=== PATIENT | female | born 1995 | race Caucasian/White ===

== ENCOUNTER 2019-09-30 19:56 | Emergency (ER) | payer OTHER ==
[~2019-09-30] VITALS: Ht 165.1 cm; Wt 95.2 kg
[~2019-09-30 19:56] MED LIST: NO MEDICATIONS; Naprosyn500 MG PO
[2019-09-30] MEDS ORDERED: TUSSIN CF COUG118 ML PO (20:34)
[2019-09-30] MEDS ORDERED: TUSSIN DM SYRU118 ML PO (20:50)
== END 2019-09-30 20:49 | disposition home or self-care (01) ==
LOC: ER 19:56
DX: J20.8 Acute bronchitis due to other specified organisms (principal); F17.200 Nicotine dependence, unspecified, uncomplicated; Z91.018 Allergy to other foods
CPT/HCPCS: 99283

== ENCOUNTER 2020-03-02 21:23 | Emergency (ER) | payer OTHER ==
[~2020-03-02] VITALS: Ht 162.6 cm; Wt 93.0 kg
[~2020-03-02 21:23] MED LIST changes: +TUSSIN CF COUG118 ML PO; +TUSSIN DM SYRU118 ML PO
[2020-03-02 22:04] LABS: Source, Urine Clean Catch
[2020-03-02 22:07] LABS: Bilirubin, Urine Neg (Neg); Blood, Urine 5+ (Neg); Glucose Qualitative, Urine Neg (Neg); Ketones, Urine Neg (Neg); Leukocyte Esterase, Urine 1+ (Neg); Nitrite, Urine Neg (Neg); Protein, Urine 1+ (Neg); Urobilinogen, Urine NORM (Normal)
[2020-03-02 22:15] LABS: Appearance, Urine Cloudy (Clear); Bacteria Few /hpf; Color, Urine Yellow (P-Yellow); Red Blood Cells, Urine TNTC /hpf (0-2); Squamous Epithelial Cells Few /hpf (Few); White Blood Cells, Urine 0-2 /hpf (0-5)
[2020-03-02 22:16] LABS: BASOPHILS ABSOLUTE AUTO 0.06 K/mm3 (0.00-0.23); BASOPHILS PERCENT AUTO 1 % (0-2); EOSINOPHILS ABSOLUTE AUTO 0.14 K/mm3 (0.00-0.68); EOSINOPHILS PERCENT AUTO 1 % (0-6); Hematocrit 41.8 % (33.0-51.0); Hemoglobin 13.4 g/dL (11.5-16.0); IMMATURE GRAN ABSOLUTE AUTO 0.05 K/mm3 (0.00-0.10); IMMATURE GRAN PERCENT AUTO 0 % (0-1); LYMPHOCYTES ABSOLUTE AUTO 2.73 K/mm3 (0.84-5.20); LYMPHOCYTES PERCENT AUTO 21 % (21-46); MONOCYTES ABSOLUTE AUTO 0.65 K/mm3 (0.16-1.47); MONOCYTES PERCENT AUTO 5 % (4-13); Mean Corpuscular HGB 28.5 pg (26.0-34.0); Mean Corpuscular HGB Conc 32.1 g/dL (31.5-36.5); Mean Corpuscular Volume 89 fL (80-100); Mean Platelet Volume 10.4 fL (9.1-12.4); NEUTROPHILS ABSOLUTE AUTO 9.55 K/mm3 (1.96-9.15); NEUTROPHILS PERCENT AUTO 72 % (41-73); Platelet Count 274 K/mm3 (150-400); RDW Coefficient Variation 13.1 % (11.7-14.2); RDW Standard Deviation 42.6 fL (35.1-46.3); White Blood Cell Count 13.18 K/mm3 (4.00-11.30)
[2020-03-02 22:36] LABS: Alanine Aminotransfer (ALT/SGP 24 U/L (12-78); Albumin, Blood 3.4 g/dL (3.4-5.0); Albumin/Globulin Ratio 0.8 (0.8-1.8); Alk Phos 114 U/L (50-136); Anion Gap 8 mmol/L (6-16); Aspartate Aminotrans (AST/SGOT 13 U/L (12-37); Bilirubin, Total 0.2 mg/dL (0.1-1.0); Blood Urea Nitrogen 8 mg/dL (8-24); CO2, Blood 24 mmol/L (21-32); Calcium, Blood 8.6 mg/dL (8.5-10.1); Chloride, Blood 109 mmol/L (98-108); Creatinine, Blood 0.53 mg/dL (0.40-1.00); Globulin, Blood 4.1 g/dL (2.2-4.0); Glomerular Filtration Rate >60 (60-); Glucose, Blood 87 mg/dL (70-99); Potassium, Blood 3.8 mmol/L (3.5-5.5); Sodium, Blood 141 mmol/L (136-145); Total Protein, Blood 7.5 g/dL (6.4-8.2)
== END 2020-03-02 23:09 | disposition home or self-care (01) ==
LOC: ER 21:23
PROVIDERS: Emergency Medicine
DX: O20.9 Hemorrhage in early pregnancy, unspecified (principal); O99.331 Smoking (tobacco) complicating pregnancy, first trimester; F17.210 Nicotine dependence, cigarettes, uncomplicated; Z91.018 Allergy to other foods; Z3A.01 Less than 8 weeks gestation of pregnancy
CPT/HCPCS: 36415; 76801; 76817; 80053; 81001; 84703; 85025; 86900; 86901; 87086; 99284-25; J7030

== ENCOUNTER → 2020-09-20 | Outpatient (CLI) | payer OTHER ==
[~2020-09-20] MED LIST changes: +ALBU90OI INH; +Robaxin750 MG PO
== END | disposition home or self-care (01) ==
LOC: LAB SHORT 15:40 → LAB 15:40
DX: Z34.83 Encounter for supervision of other normal pregnancy, third trimester (principal); Z3A.36 36 weeks gestation of pregnancy
CPT/HCPCS: 87081; 87150

== ENCOUNTER 2020-10-03 14:55 | Inpatient (IN) | payer OTHER ==
[~2020-10-03] VITALS: Ht 165.1 cm; Wt 120.0 kg
[~2020-10-03 14:55] MED LIST changes: -ALBU90OI INH; -Robaxin750 MG PO
[2020-10-03 16:27] LABS: Alanine Aminotransfer (ALT/SGP 10 U/L (12-78); Albumin, Blood 2.3 g/dL (3.4-5.0); Albumin/Globulin Ratio 0.5 (0.8-1.8); Alk Phos 116 U/L (50-136); Anion Gap 9 mmol/L (6-16); Aspartate Aminotrans (AST/SGOT 15 U/L (12-37); Bilirubin, Total 0.6 mg/dL (0.1-1.0); Blood Urea Nitrogen 4 mg/dL (8-24); Bun/Creatinine Ratio 7.9 (12.0-20.0); CO2, Blood 22 mmol/L (21-32); Calcium, Blood 8.5 mg/dL (8.5-10.1); Chloride, Blood 110 mmol/L (98-108); Creatinine, Blood 0.51 mg/dL (0.40-1.00); Globulin, Blood 4.2 g/dL (2.2-4.0); Glomerular Filtration Rate >60 (60-); Glucose, Blood 71 mg/dL (70-99); Potassium, Blood 3.5 mmol/L (3.5-5.5); Sodium, Blood 141 mmol/L (136-145); Total Protein, Blood 6.5 g/dL (6.4-8.2)
[2020-10-03 16:29] LABS: Influenza A, PCR Negative (NEGATIVE); Influenza B, PCR Negative (NEGATIVE); Resp Syncytial Virus, PCR Negative (NEGATIVE); SARS-Cov-2 (COVID-19) PCR, MMC Negative (NEGATIVE)
[2020-10-03 17:03] LABS: Creatinine, Urine Random 97.2 mg/dL (27.00-270.00); Protein, Urine Random 20.5 mg/dL (0.0-11.9); Protein/Creat Ratio, Ur Random 0.2
[2020-10-03 17:24] LABS: BASOPHILS ABSOLUTE AUTO 0.04 K/mm3 (0.00-0.23); BASOPHILS PERCENT AUTO 1 % (0-2); EOSINOPHILS ABSOLUTE AUTO 0.06 K/mm3 (0.00-0.68); EOSINOPHILS PERCENT AUTO 1 % (0-6); Hematocrit 31.4 % (33.0-51.0); Hemoglobin 9.9 g/dL (11.5-16.0); IMMATURE GRAN ABSOLUTE AUTO 0.06 K/mm3 (0.00-0.10); IMMATURE GRAN PERCENT AUTO 1 % (0-1); LYMPHOCYTES ABSOLUTE AUTO 1.71 K/mm3 (0.84-5.20); LYMPHOCYTES PERCENT AUTO 19 % (21-46); MONOCYTES ABSOLUTE AUTO 0.37 K/mm3 (0.16-1.47); MONOCYTES PERCENT AUTO 4 % (4-13); Mean Corpuscular HGB 26.1 pg (26.0-34.0); Mean Corpuscular HGB Conc 31.5 g/dL (31.5-36.5); Mean Corpuscular Volume 83 fL (80-100); Mean Platelet Volume 11.3 fL (9.1-12.4); NEUTROPHILS ABSOLUTE AUTO 6.62 K/mm3 (1.96-9.15); NEUTROPHILS PERCENT AUTO 75 % (41-73); Platelet Count 212 K/mm3 (150-400); RDW Coefficient Variation 13.6 % (11.7-14.2); Red Blood Cell Count 3.79 M/mm3 (3.80-5.20); White Blood Cell Count 8.86 K/mm3 (4.00-11.30)
--- NOTE | 2020-10-04 16:00 | NUR ---
ASSUMED CARE, PT SLEEPING
--- NOTE | 2020-10-04 18:39 | NUR ---
STABLE PATIENT CARING FOR SELF AND NB INDEPENDENTLY, BREAST FEEDING GOING WELL
[2020-10-05 05:57] LABS: BASOPHILS ABSOLUTE AUTO 0.07 K/mm3 (0.00-0.23); BASOPHILS PERCENT AUTO 1 % (0-2); EOSINOPHILS ABSOLUTE AUTO 0.22 K/mm3 (0.00-0.68); EOSINOPHILS PERCENT AUTO 2 % (0-6); Hematocrit 28.1 % (33.0-51.0); Hemoglobin 8.9 g/dL (11.5-16.0); IMMATURE GRAN ABSOLUTE AUTO 0.12 K/mm3 (0.00-0.10); IMMATURE GRAN PERCENT AUTO 1 % (0-1); LYMPHOCYTES ABSOLUTE AUTO 3.03 K/mm3 (0.84-5.20); LYMPHOCYTES PERCENT AUTO 24 % (21-46); MONOCYTES ABSOLUTE AUTO 0.76 K/mm3 (0.16-1.47); MONOCYTES PERCENT AUTO 6 % (4-13); Mean Corpuscular HGB 26.6 pg (26.0-34.0); Mean Corpuscular HGB Conc 31.7 g/dL (31.5-36.5); Mean Corpuscular Volume 84 fL (80-100); Mean Platelet Volume 11.1 fL (9.1-12.4); NEUTROPHILS ABSOLUTE AUTO 8.48 K/mm3 (1.96-9.15); NEUTROPHILS PERCENT AUTO 67 % (41-73); Platelet Count 212 K/mm3 (150-400); RDW Coefficient Variation 13.7 % (11.7-14.2); RDW Standard Deviation 41.7 fL (35.1-46.3); Red Blood Cell Count 3.35 M/mm3 (3.80-5.20); White Blood Cell Count 12.68 K/mm3 (4.00-11.30)
--- NOTE | 2020-10-05 11:56 | NUR ---
BANDS MATACHED WITH NB, ALL PERSONAL BELONGINGS RETURNED. PT IS DISCHARGED HOME WITH Gaurav BOWMAN.
== END 2020-10-05 12:00 | disposition home or self-care (01) | DRG 807 ==
LOC: OBS 14:55 → BC 14:57 → OBS 15:10 → BC 15:19
PROVIDERS: ADMIT Obstetrics & Gynecology
PROC: 3E033VJ Introduction of Other Hormone into Peripheral Vein, Percutaneous Approach (ICD-10-PCS; 2020-10-03)
PROC: 3E0R3BZ Introduction of Anesthetic Agent into Spinal Canal, Percutaneous Approach (ICD-10-PCS; 2020-10-03)
PROC: 00HU33Z Insertion of Infusion Device into Spinal Canal, Percutaneous Approach (ICD-10-PCS; 2020-10-03)
PROC: 10907ZC Drainage of Amniotic Fluid, Therapeutic from Products of Conception, Via Natural or Artificial Opening (ICD-10-PCS; 2020-10-03)
PROC: 10E0XZZ Delivery of Products of Conception, External Approach (ICD-10-PCS; principal; 2020-10-04)
DX: O14.14 Severe pre-eclampsia complicating childbirth (principal); Z37.0 Single live birth; Z3A.38 38 weeks gestation of pregnancy; O99.334 Smoking (tobacco) complicating childbirth; F17.210 Nicotine dependence, cigarettes, uncomplicated; Z20.828 Contact with and (suspected) exposure to other viral communicable diseases; O99.824 Streptococcus B carrier state complicating childbirth
CPT/HCPCS: 0241U; 36415; 51702; 80053; 82570; 84156; 85025; 86850; 86900; 86901; J0290; J1885; J2001; J2210; J2405; J2590; J3010; J7120

== ENCOUNTER 2021-01-28 21:36 | Emergency (ER) | payer OTHER ==
[~2021-01-28] VITALS: Ht 162.6 cm; Wt 114.3 kg
[2021-01-28] MEDS ORDERED: Robaxin750 MG PO (21:44)
[2021-01-28] MEDS ORDERED: ALBU90OI INH (22:55)
== END 2021-01-28 23:01 | disposition home or self-care (01) ==
LOC: ER 21:36
DX: U07.1 COVID-19 (principal); F17.210 Nicotine dependence, cigarettes, uncomplicated; Z88.5 Allergy status to narcotic agent; Z91.018 Allergy to other foods
CPT/HCPCS: 71045; 94640; 94664; 99284-25; A9270

== ENCOUNTER → 2022-01-04 | Outpatient (CLI) | payer OTHER ==
[~2022-01-04] MED LIST changes: +ALBU90OI INH; +Robaxin750 MG PO
== END | disposition home or self-care (01) ==
LOC: LAB 16:11 → LAB SHORT 16:11
DX: J02.9 Acute pharyngitis, unspecified (principal)
CPT/HCPCS: 87081